=== PATIENT | female | born 1965 | race Caucasian/White ===

== ENCOUNTER 2017-09-16 04:23 | Emergency (ER) | payer BC ==
[2017-09-16] MEDS ORDERED: Lidocaine/EPINEPHrine/Tetracaine Soln 1 ML TOP ONE (04:48)
[2017-09-16] MEDS ORDERED: Diphtheria,Pertussis(Acell),Tetanus Vaccine 0.5 ML SDV IM ONE (04:48)
--- NOTE | 2017-09-16 05:02 | EDM.PDOC ---
ED HPI GENERAL MEDICAL PROBLEM - General Chief Complaint: Bite:Animal, Insect Stated Complaint: DOG BITE LACERATION ON FACE Time Seen by Provider: 09/16/17 04:40 Source of Information: Reports: Patient History Limitations: Reports: No Limitations - History of Present Illness INITIAL COMMENTS - FREE TEXT/NARRATIVE: The patient states that she has 3 large dogs. 2 of them got into a fight on her bed around 03:00 this morning, and the right side of the patient's face was accidentally bitten. The patient is otherwise uninjured. The patient does not recall when her last tetanus vaccination was. The patient's PCP is Dr. Becker. - Related Data Allergies Allergy/AdvReac Type Severity Reaction Status Date / Time bupropion HCl AdvReac Tachycardia Verified 02/28/14 12:25 [From Wellbutrin] Home Meds: Home Meds Calcium Carbonate/Vitamin D3 [Calcium 600 + Vit D Tablet] 2 each PO BID [History] Escitalopram [Lexapro] 20 mg PO DAILY 02/28/14 [History] Multivitamin [Multivitamins] 1 each PO DAILY 02/28/14 [History] Amoxicillin/Clavulanate K [Augmentin 875-125 MG] 1 tab PO Q12H #13 tablet [Rx] Ezetimibe [Zetia] 10 mg PO BEDTIME 09/16/17 [History] Famotidine [Pepcid] 20 mg PO DAILY 09/16/17 [History] Past Medical History Cardiovascular History: Reports: High Cholesterol Psychiatric History: Reports: Depression - Past Surgical History HEENT Surgical History: Reports: Oral Surgery ([place] teeth extraction) Female Surgical History: Reports: Tubal Ligation Social & Family History - Family History Family Medical History: Noncontributory - Tobacco Use Smoking Status *Q: Current Every Day Smoker Years of Tobacco use: 31 Packs/Tins Daily: 0.5 - Caffeine Use Caffeine Use: Reports: Coffee - Alcohol Use Alcohol Use History: Yes Days Per Week of Alcohol Use: 0 Alcohol Use Frequency: Socially - Recreational Drug Use Recreational Drug Use: No - Living Situation & Occupation Living situation: Reports: , with Spouse 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 ED EXAM, ANIMAL BITE - Physical Exam Exam: See Below Exam Limited By: No Limitations General Appearance: Alert, WD/WN, No Apparent Distress Eye Exam: Bilateral Eye: Normal Inspection Ears: Normal External Exam, Hearing Grossly Normal Nose: Normal Inspection, No Blood Throat/Mouth: Normal Inspection, Normal Lips, Normal Voice, No Airway Compromise Head: Normocephalic, Other (Several deep scratches over the right zygomatic arch , forming a "V" with each limb measuring approximately 1.5 cm. While the wound appears to be a flap laceration, the V-shaped skin is actually adherent to the underlying connective tissue.) ED ANIMAL BITE PROCEDURES - Laceration/Wound Repair Right Face Lac/Wound Length In cm: 3 Appearance: Subcutaneous, Irregular, Clean Distal NVT: Neuro & Vascular Intact, No Tendon Injury Anesthetic Type: Topical (LET) Skin Prep: Providone-Iodine (Betadine) Exploration/Debridement/Repair: Wound Explored, In a Bloodless Field, Explored to Base, No Foreign Material Found, Wound Margins Revised Closed With: Sutures Suture Size: other (6-0) # of Sutures: 8 Suture Type: Nylon, Interrupted, Simple Sterile Dressing Applied: None Tetanus Status Addressed: Yes Complications: No Course - Vital Signs Last Recorded V/S: Last Vital Signs Temp 36.0 C 09/16/17 04:28 Pulse 62 09/16/17 04:28 Resp 16 09/16/17 04:28 BP 139/68 09/16/17 04:28 Pulse Ox 100 09/16/17 04:28 - Orders/Labs/Meds Orders: Active Orders 24 hr Category Date Time Status Vaccines to be Administered [RC] PER UNIT ROUTINE Care 09/16/17 04:48 Active Meds: Medications Discontinued Medications Generic Name Dose Route Start Last Admin Trade Name Jakeq PRN Reason Stop Dose Admin Diphtheria/Tetanus/Acell Pertussis 0.5 ml 09/16/17 04:48 09/16/17 04:57 Adacel IM 09/16/17 04:49 0.5 ml .ONCE ONE Administration Lidocaine/Tetracaine 1 ml 09/16/17 04:48 09/16/17 04:57 Let Soln TOP 09/16/17 04:49 1 ml ONETIME ONE Administration - Re-Assessments/Exams Free Text/Narrative Re-Assessment/Exam: 09/16/17 04:55 The wound to the patient's right cheek area is actually deep scratches, including a small amount of avulsion. The avulsed skin cannot be repaired, however, I believe that a couple of small sutures may improve the cosmetic outcome to the superior aspect of the V-shaped wound. I have ordered LET to the area, as well as a tetanus vaccination. 09/16/17 06:08 Following anesthesia with topical LET, the patient's wound was approximated with 8 sutures, using 6-0 Ethilon, to good cosmetic effect. A forte, we do not have bacitracin ointment available, so the patient will need to get that at her pharmacy. Because this is a dog bite, we are going to start the patient on Augmentin, and I will e-prescribe a 7-day course. The patient received a tetanus vaccination. Departure - Departure Time of Disposition: 06:09 Disposition: Home, Self-Care 01 Condition: Good Clinical Impression: Dog bite of face - Discharge Information Referrals: Gucci Fitzgerald MD [Primary Care Provider] - Forms: ED Department Discharge Additional Instructions: You were seen in the emergency room after being accidentally bitten on your face by one of your dogs. Your facial laceration was closed with 8 sutures, and you received a tetanus vaccination. Keep the wound clean with ordinary soap and water. Pat dry, then apply a thin smear of bacitracin ointment. Bacitracin should be available at your pharmacy. You have been started on the antibiotic Augmentin. A prescription [facility], across the [facility] from the hospital. You can pick the prescription up this morning, but don't start it until this evening. Take [id number] Tylenol or ibuprofen as needed for discomfort. The sutures should be ready for removal on 09/26/2017. These can be removed at a walk-in clinic, by a nurse at your doctor's office, or back at the ER. Once your wound has completely healed, apply sunblock to the wound for 6 months , even in the winter, to minimize the appearance of a scar. If any other problems, please do not hesitate to return to the ER. - My Orders Last 24 Hours: My Active Orders 09/16/17 04:48 Vaccines to be Administered [RC] PER UNIT ROUTINE - Assessment/Plan Last 24 Hours: My Active Orders 09/16/17 04:48 Vaccines to be Administered [RC] PER UNIT ROUTINE
[2017-09-16] MEDS ORDERED: Amoxicillin/Clavulanate K 875-125 MG Tab PO ONE (06:09)
== END 2017-09-16 06:25 | disposition home or self-care (01) ==
LOC: JD.ED 04:23
DX: S01.85XA Open bite of other part of head, initial encounter (principal); Z23 Encounter for immunization; E78.00 Pure hypercholesterolemia, unspecified; F32.9 Major depressive disorder, single episode, unspecified; F17.210 Nicotine dependence, cigarettes, uncomplicated; Z79.899 Other long term (current) drug therapy; Z88.8 Allergy status to other drugs, medicaments and biological substances; W54.0XXA Bitten by dog, initial encounter
CPT/HCPCS: 12013; 90471; 90715; 99283; A9270

== ENCOUNTER 2020-12-25 17:51 | Emergency (ER) | payer BC ==
[2020-12-25] MEDS ORDERED: Sodium Chloride 0.9% 10 ML Syringe FLUSH PRN (18:59)
--- NOTE | 2020-12-25 19:05 | EDM.PDOC ---
ED HPI GENERAL MEDICAL PROBLEM - General Chief Complaint: Abdominal Pain Stated Complaint: UPPER ABDOMINAL PAIN Time Seen by Provider: 12/25/20 18:52 Source of Information: Reports: Patient History Limitations: Reports: No Limitations - History of Present Illness INITIAL COMMENTS - FREE TEXT/NARRATIVE: The patient presents with right upper abdominal pain. This started about 5:30 pm after eating. She said she had just eaten popcorn with no butter, yogurt, and fresh vegetables. Shortly after eating she developed severe right mid back pain and then pain to the right upper abdomen. The pain is gone now. This has happened before. She has no nausea or vomiting. She has no fever, chills, cough, congestion, runny nose, chest pain or shortness of breath. She has been having trouble with constipation for a few weeks. She still has her gallbladder and appendix. Her provider is Guera Hearn. Onset: Sudden Duration: Hour(s): Location: Reports: Abdomen, Back Quality: Reports: Sharp Severity: Severe (but gone now) Improves with: Reports: None Worsens with: Reports: None Associated Symptoms: Reports: No Other Symptoms Right Upper Abdomen Pain Score (Numeric/FACES): 2 - Related Data Allergies Allergy/AdvReac Type Severity Reaction Status Date / Time No Known Allergies Allergy Verified 12/25/20 17:59 Home Meds: Home Meds Calcium Carbonate/Vitamin D3 [Calcium 600 + Vit D Tablet] 2 each PO BID 02/28/14 [History] Multivitamin [Multivitamins] 1 each PO DAILY 02/28/14 [History] FLUoxetine [PROzac] 12/25/20 [History] Fenofibrate 160 mg PO DAILY 12/25/20 [History] Pantoprazole [ProTONIX] 12/25/20 [History] buPROPion [Wellbutrin] 150 mg PO BEDTIME 12/25/20 [History] estradioL [Estradiol] 12/25/20 [History] Past Medical History Cardiovascular History: Reports: High Cholesterol Respiratory History: Reports: None Gastrointestinal History: Reports: Chronic Constipation, GERD Genitourinary History: Reports: None 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: Musculoskeletal History: Reports: Back Pain, Chronic, Neck Pain, Chronic, Other (See Below) Other Musculoskeletal History: hips Neurological History: Reports: None Psychiatric History: Reports: Depression Endocrine/Metabolic History: Reports: None Hematologic History: Reports: None Immunologic History: Reports: None Oncologic (Cancer) History: Reports: None Dermatologic History: Reports: None - Infectious Disease History Infectious Disease History: Reports: Chicken Pox - Past Surgical History HEENT Surgical History: Reports: Oral Surgery Female Surgical History: Reports: Tubal Ligation Social & Family History - Family History Family Medical History: No Pertinent Family History - Tobacco Use Tobacco Use Status *Q: Current Every Day Tobacco User Years of Tobacco use: 30 Packs/Tins Daily: 1 - Caffeine Use Caffeine Use: Reports: Coffee - Recreational Drug Use Recreational Drug Use: Yes Drug Use in Last 12 Months: Yes Recreational Drug Type: Reports: Marijuana/Hashish Recreational Drug Use Frequency: Socially - Living Situation & Occupation Living situation: Reports: , with Spouse 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 Denies: Nausea, Vomiting : Reports: No Symptoms Musculoskeletal: Reports: Back Pain (right mid back) Skin: Reports: No Symptoms ED EXAM, GI/ABD - Physical Exam Exam: See Below Exam Limited By: No Limitations General Appearance: Alert, No Apparent Distress Ears: Normal External Exam Nose: Normal Inspection Head: Atraumatic, Normocephalic Neck: Normal Inspection Respiratory/Chest: No Respiratory Distress, Lungs Clear, Normal Breath Sounds Cardiovascular: Regular Rate, Rhythm, No Edema, No Murmur GI/Abdominal Exam: Soft, No Organomegaly, No Mass, Tender (Minimal tenderness to the right upper abdomen) Back Exam: Normal Inspection Extremities: Normal Inspection Course - Vital Signs Last Recorded V/S: Last Vital Signs Temp 97.3 F 12/25/20 18:06 Pulse 72 12/25/20 18:06 Resp 18 12/25/20 18:06 BP 151/68 H 12/25/20 18:06 Pulse Ox 99 12/25/20 18:06 - Orders/Labs/Meds Orders: Active Orders 24 hr Category Date Time Status Peripheral IV Care [RC] . DIRECTED Care 12/25/20 19:00 Active Sodium Chloride 0.9% [Saline Flush] Med 12/25/20 18:59 Active 10 ml FLUSH ASDIRECTED PRN Peripheral IV Insertion Adult [OM.PC] Stat Oth 12/25/20 18:59 Ordered Medication Orders Sodium Chloride (Sodium Chloride 0.9% 10 Ml Syringe) 10 ml FLUSH ASDIRECTED PRN PRN Reason: Keep Vein Open Last Admin: 12/25/20 19:11 Dose: 10 ml Documented by: [email or web address] Labs: Laboratory Tests 12/25/20 12/25/20 12/25/20 Range/Units 19:21 19:28 19:28 WBC 4.76 (3.98-10.04) K/mm3 RBC 3.98 (3.98-5.22) M/mm3 Hgb 12.4 (11.2-15.7) gm/dl Hct 37.5 (34.1-44.9) % MCV 94.2 (79.4-94.8) fl MCH 31.2 (25.6-32.2) pg MCHC 33.1 (32.2-35.5) g/dl RDW Std Deviation 43.9 (36.4-46.3) fL Plt Count 322 (182-369) K/mm3 MPV 9.2 L (9.4-12.3) fl Neut % (Auto) 50.9 (34.0-71.1) % Lymph % (Auto) 36.1 (19.3-51.7) % [place] % (Auto) 10.7 (4.7-12.5) % Eos % (Auto) 1.5 (0.7-5.8) Baso % (Auto) 0.6 (0.1-1.2) % Neut # (Auto) 2.42 (1.56-6.13) K/mm3 Lymph # (Auto) 1.72 (1.18-3.74) K/mm3 [place] # (Auto) 0.51 H (0.24-0.36) K/mm3 Eos # (Auto) 0.07 (0.04-0.36) K/mm3 Baso # (Auto) 0.03 (0.01-0.08) K/mm3 Sodium 140 (136-145) mEq/L Potassium 3.5 (3.5-5.1) mEq/L Chloride 103 (98-107) mEq/L Carbon Dioxide 29 (21-32) mEq/L Anion Gap 11.5 (5-15) BUN 9 (7-18) mg/dL Creatinine 0.9 (0.55-1.02) mg/dL Est Cr Clr Drug Dosing 58.38 mL/min Estimated GFR (MDRD) > 60 (>60) mL/min BUN/Creatinine Ratio 10.0 L (14-18) Glucose 76 (70-99) mg/dL Calcium 8.8 (8.5-10.1) mg/dL Total Bilirubin 0.2 (0.2-1.0) mg/dL AST 20 (15-37) U/L ALT 27 (14-59) U/L Alkaline Phosphatase 34 L (46-116) U/L Total Protein 6.9 (6.4-8.2) g/dl Albumin 3.8 (3.4-5.0) g/dl Globulin 3.1 gm/dL Albumin/Globulin Ratio 1.2 (1-2) Lipase 175 (73-393) U/L Urine Color Yellow (Yellow) Urine Appearance Clear (Clear) Urine pH 6.5 (5.0-8.0) Ur Specific [place] 1.010 (1.005-1.030) Urine Protein Negative (Negative) Urine Glucose (UA) Negative (Negative) Urine Ketones Negative (Negative) Urine Occult Blood Negative (Negative) Urine Nitrite Negative (Negative) Urine Bilirubin Negative (Negative) Urine Urobilinogen 0.2 (0.2-1.0) Ur Leukocyte Esterase Trace H (Negative) Urine RBC 0-5 (0-5) /hpf Urine WBC 0-5 (0-5) /hpf Ur Squamous Epith Cells 0-5 (0-5) /hpf Urine Bacteria Occasional (FEW) /hpf Urine Mucus Not seen (FEW) /hpf Meds: Medications Generic Name Dose Route Start Last Admin Trade Name Freq PRN Reason Stop Dose Admin Sodium Chloride 10 ml 12/25/20 18:59 12/25/20 19:11 Sodium Chloride 0.9% 10 Ml Syringe FLUSH 10 ml ASDIRECTED PRN Administration Keep Vein Open - Re-Assessments/Exams Free Text/Narrative Re-Assessment/Exam: 12/25/20 19:05 I ordered an IV saline lock and labs. 12/25/20 20:05 Her CBC and CMP look good. Lipase is normal. Her UA shows no UTI. I have ordered an US for tomorrow. Departure - Departure Time of Disposition: 20:05 Disposition: Home, Self-Care 01 Condition: Good Clinical Impression: Abdominal pain Qualifiers: Abdominal location: right upper quadrant Qualified Code(s): R10.11 - Right upper quadrant pain - Discharge Information *PRESCRIPTION DRUG MONITORING PROGRAM REVIEWED*: Not Applicable *COPY OF PRESCRIPTION DRUG MONITORING REPORT IN PATIENT CINDI: Not Applicable Referrals: Guera Hearn PA-C [Primary Care Provider] - 1 Week Forms: ED Department Discharge Additional Instructions: I have ordered an ultrasound of your gallbladder for tomorrow morning at 7:30am. Please come a little early to register. Take tylenol or motrin for pain. Have nothing to eat or drink after midnight. Please return if you are worse. Sepsis Event Note (ED) - Evaluation Sepsis Screening Result: No Definite Risk - Focused Exam Vital Signs: Vital Signs Temp Pulse Resp BP Pulse Ox 12/25/20 18:06 97.3 F 72 18 151/68 H 99 - My Orders Last 24 Hours: My Active Orders 12/25/20 18:59 Sodium Chloride 0.9% [Saline Flush] 10 ml FLUSH ASDIRECTED PRN Peripheral IV Insertion Adult [OM.PC] Stat 12/25/20 19:00 Peripheral IV Care [RC] . DIRECTED - Assessment/Plan Last 24 Hours: My Active Orders 12/25/20 18:59 Sodium Chloride 0.9% [Saline Flush] 10 ml FLUSH ASDIRECTED PRN Peripheral IV Insertion Adult [OM.PC] Stat 12/25/20 19:00 Peripheral IV Care [RC] . DIRECTED
== END 2020-12-25 20:20 | disposition home or self-care (01) ==
LOC: JD.ED 17:51
DX: R10.11 Right upper quadrant pain (principal); E78.00 Pure hypercholesterolemia, unspecified; K21.9 Gastro-esophageal reflux disease without esophagitis; Z72.0 Tobacco use; Z79.899 Other long term (current) drug therapy
CPT/HCPCS: 36415; 80053; 81001; 83690; 85025; 99283; 99284

== ENCOUNTER 2022-08-28 20:44 | Emergency (ER) | payer BC ==
[2022-08-28] MEDS ORDERED: Sodium Chloride 0.9% 1,000 ML IV ONE (21:26)
[2022-08-28] MEDS ORDERED: LORazepam 2 MG/ML SDV IVPUSH STA (21:29)
[2022-08-28 22:14] LABS: ESTIMATED GFR 76 mL/min (>60)
== END 2022-08-28 23:50 | disposition home or self-care (01) ==
LOC: JD.ED 20:44
DX: R25.1 Tremor, unspecified (principal); K21.9 Gastro-esophageal reflux disease without esophagitis; Z87.891 Personal history of nicotine dependence; Z79.899 Other long term (current) drug therapy; Z90.710 Acquired absence of both cervix and uterus
CPT/HCPCS: 36415; 80053; 83735; 85007; 85027; 86140; 96361; 96374; 99284; J2060; J7030; 99283